=== PATIENT | male | born 1980 | race Hispanic/Latino ===

== ENCOUNTER 2018-11-05 18:15 | Emergency (ER) | payer BC ==
[2018-11-05 18:37] VITALS: RESP 18
[2018-11-05 20:12] LABS: BASO % 0.4 % (0.0-2.0); EOS % 0.6 % (0.0-4.0); HEMOGLOBIN 15.8 g/dL (12.0-18.0); LYMPH % 23.5 % (20.0-40.0); MEAN CELL VOLUME 94.3 fl (80.0-94.0); MEAN CORPUSCULAR HEMOGLOBIN 31.6 pg (27.0-31.0); MEAN CORPUSCULAR HGB CONC 33.5 g/dL (33.0-37.0); MEAN PLATELET VOLUME 10.1 fl (7.2-11.7); MONO # 0.5 K/uL (0.0-0.8); MONO % 6.1 % (0.0-10.0); NEUT # 5.9 K/uL (1.8-7.0); NEUT % 69.4 % (50.0-75.0); NRBC % 0.2 % (0.0-0.0); RBC 4.99 Mil/uL (4.40-5.90); WHITE BLOOD COUNT 8.5 K/uL (4.8-10.8)
[2018-11-05 20:24] LABS: ALB/GLOB RATIO 1.4 (1.0-2.1); ALT/SGPT 38 U/L (21-72); AST/SGOT 40 U/L (17-59); BLOOD UREA NITROGEN 27 mg/dl (9-20); CALCIUM 10.5 mg/dL (8.4-10.2); GFR NON-AFRICAN AMERICAN > 60
--- NOTE | 2018-11-05 20:43 | ED PDOC ---
HPI: Chest Pain Time Seen by Provider: 11/05/18 19:19 Chief Complaint (Nursing): Chest Pain Chief Complaint (Provider): Chest Pain History Per: Patient History/Exam Limitations: no limitations Onset/Duration Of Symptoms: Days (x 2 weeks) Current Symptoms Are (Timing): Still Present Quality: "Pain" Additional Complaint(s): 38 year old male with no significant medical history presents to the ED with intermittent midline chest pain associated with belching for the last two weeks. Patient reports that pain occasionally also radiates to back. He denies pain at this time and states that he believes it is due to reflux. Patient intermittently fasts and admits that he drinks a high amount of caffeine often on an empty stomach. He denies nausea, vomiting, shortness of breath and diaphoresis. PMD: none provided Past Medical History Reviewed: Historical Data, Nursing Documentation, Vital Signs Vital Signs: Last Vital Signs Temp 98 F 11/05/18 18:36 Pulse 78 11/05/18 19:55 Resp 18 11/05/18 18:36 BP 167/78 H 11/05/18 18:36 Pulse Ox 100 11/05/18 18:36 - Medical History PMH: No Chronic Diseases - Surgical History Other surgeries: right MCL repair - Family History Family History: States: No Known Family Hx - Allergies Allergies/Adverse Reactions: Allergies Allergy/AdvReac Type Severity Reaction Status Date / Time No Known Allergies Allergy Verified 11/05/18 18:36 Review of Systems ROS Statement: Except As Marked, All Systems Reviewed And Found Negative Cardiovascular: Positive for: Chest Pain (intermittent midline chest pain) Respiratory: Negative for: Cough, Shortness of Breath Gastrointestinal: Positive for: Other (belching). Negative for: Nausea, Vomiting, Abdominal Pain Musculoskeletal: Positive for: Back Pain (occasionally) Physical Exam - Reviewed Nursing Documentation Reviewed: Yes Vital Signs Reviewed: Yes - Physical Exam Appears: Positive for: No Acute Distress Head Exam: Positive for: ATRAUMATIC, NORMAL INSPECTION, NORMOCEPHALIC Skin: Positive for: Normal Color, Warm, Dry Eye Exam: Positive for: EOMI, Normal appearance, PERRL Neck: Positive for: Normal, Painless ROM, Supple Cardiovascular/Chest: Positive for: Regular Rate, Rhythm. Negative for: Murmur Respiratory: Positive for: Normal Breath Sounds. Negative for: Wheezing, Respiratory Distress Gastrointestinal/Abdominal: Positive for: Normal Exam, Soft. Negative for: Tenderness Extremity: Positive for: Normal ROM (upper and lower extremities). Negative for: Deformity, Swelling Neurologic/Psych: Positive for: Alert, Oriented (x 3). Negative for: Motor/Sensory Deficits - Laboratory Results Result Diagrams: 11/05/18 20:07 11/05/18 20:07 - ECG O2 Sat by Pulse Oximetry: 100 (RA) Pulse Ox Interpretation: Normal Medical Decision Making Medical Decision Makin:38 Impression: 38 year old male with intermittent chest pain Initial Plan: --EKG --CMP --CBC --Troponin --UDS --CXR --urine dip 21:54 Labs reviewed and revealed no clinically significant abnormalities. Chest x-ray shows no acute disease. Discussed results with patient at length. All questions answered. He will follow up with Dr. Sullivan. Diagnosis is atypical chest pain. Scribe Attestation: Documented by Evelina Brar acting as a scribe for Paul Nelson MD Provider Scribe Attestation: All medical record entries made by the Scribe were at my direction and pers onally dictated by me. I have reviewed the chart and agree that the record accurately reflects my personal performance of the history, physical exam, medical decision making, and the department course for this patient. I have also personally directed, reviewed, and agree with the discharge instructions and disposition. Disposition - Clinical Impression Clinical Impression: Atypical chest pain - Patient ED Disposition Is Patient to be Admitted: No - Disposition Referrals: Timothy Meadows MD [Staff Provider] - Disposition: Routine/Home Disposition Time: 21:54 Condition: STABLE Instructions: Chest Pain That Is Not Caused by the Heart (DC) Forms: [employer] (Russian)
[2018-11-05 21:09] LABS: BARBITURATES, UR NEGATIVE (NEGATIVE); BENZODIAZEPINES, UR NEGATIVE (NEGATIVE); OPIATES, UR NEGATIVE (NEGATIVE); PHENCYCLIDINE, UR NEGATIVE (NEGATIVE)
[2018-11-05 22:41] VITALS: BP 133/96; PULSE 79; TEMP 98.1
[2018-11-06 06:38] VITALS: O2SAT 100
--- NOTE | 2018-11-06 08:04 | RAD ---
Date of service: 11/05/2018 HISTORY: chest pain COMPARISON: No prior. TECHNIQUE: Chest PA and lateral FINDINGS: LUNGS: No active pulmonary disease. PLEURA: No significant pleural effusion identified. No pneumothorax apparent. CARDIOVASCULAR: No aortic atherosclerotic calcification present. Normal cardiac size. No pulmonary vascular congestion. OSSEOUS STRUCTURES: No significant abnormalities. VISUALIZED UPPER ABDOMEN: Normal. OTHER FINDINGS: None. IMPRESSION: No active disease.
--- NOTE | 2018-11-06 23:00 | CARD ---
APPROVED REPORT Date of service: 11/05/2018 EKG Measurement Heart [id number] <Conclusion> Normal sinus rhythm with sinus arrhythmia Normal ECG
== END 2018-11-05 22:15 | disposition home or self-care (01) ==
LOC: H.ER 18:15
DX: R07.89 Other chest pain (principal)
CPT/HCPCS: 71046; 80053; 84484; 85025; 93005; 99284; G0480